=== PATIENT | male | born 1955 | race Caucasian/White ===

== ENCOUNTER 2016-12-07 02:02 | Observation (INO) | payer BC ==
[~2016-12-07] VITALS: Ht 175.3 cm; Wt 97.5 kg
[~2016-12-07 02:02] MED LIST: Aspirin E.C. PO; BP MEDICATION; CRESTOR5 MG PO; FISH OIL 1,0001 EAC7 PO; Nitrostat,NitroQuick SL; Zestril,Prinivil PO
[2016-12-07 02:29] LABS: HEMATOCRIT 43.7 % (38.0-50.0); MCHC 34.3 G/DL (30.0-36.0); MCV 87.4 FL (86-99); PLATELET COUNT 230 K/uL (156-360); RBC DIS.WIDTH-CV 12.3 % (11.8-14.6); RBC DIS.WIDTH-SD 39.6 % (39-53); WHITE BLOOD COUNT 7.2 K/uL (4.1-10.2)
[2016-12-07 02:42] LABS: CHLORIDE 105 mEq/L (99-109); POTASSIUM 3.9 mEq/L (3.7-5.4); SODIUM 140 mEq/L (136-147)
[2016-12-07 02:44] LABS: GLUCOSE 161 mg/dL (70-99)
[2016-12-07 02:45] LABS: ANION GAP 12 MEQ/L (2-14)
[2016-12-07 02:48] LABS: GFR ESTIMATE (CALCULATED) > 59 mL/min/
[2016-12-07 02:49] LABS: UREA NITROGEN (BUN) 13 mg/dL (9-23)
[2016-12-07 02:53] LABS: TROP-I INTERPRETATION NEGATIVE; TROPONIN-I < 0.01 ng/mL (0.0-0.30)
[2016-12-07 04:46] LABS: TROP-I INTERPRETATION NEGATIVE; TROPONIN-I < 0.01 ng/mL (0.0-0.30)
[2016-12-07] MEDS ORDERED: CARISOPRODOL350 MG PO (07:41)
[2016-12-07] MEDS ORDERED: ATORVASTATIN CA80 MG PO (07:42)
[2016-12-07] MEDS ORDERED: MELOXICAM15 MG PO (07:42)
[2016-12-07] MEDS ORDERED: METFORMIN HCL500 MG PO (07:42)
[2016-12-07 11:43] LABS: TROP-I INTERPRETATION NEGATIVE; TROPONIN-I < 0.01 ng/mL (0.0-0.30)
[2016-12-07 13:53] VITALS: BP 108/67
[2016-12-07 16:00] VITALS: BP 124/72
[2016-12-07 16:17] VITALS: BP 129/73
[2016-12-07 16:37] LABS: POINT-OF-CARE METER ID UU13113831
[2016-12-07 18:24] LABS: TROP-I INTERPRETATION NEGATIVE; TROPONIN-I < 0.01 ng/mL (0.0-0.30)
[2016-12-07 20:00] VITALS: BP 133/73
[2016-12-07 23:00] VITALS: BP 158/87
[2016-12-08 04:02] VITALS: BP 118/59
== END 2016-12-08 06:39 | disposition home or self-care (01) ==
LOC: EME 02:02 → EDOF 07:16 → 5WEST 13:47
PROVIDERS: Emergency Medicine; Internal Medicine; Nurse Practitioner Adult Health
DX: R07.89 Other chest pain (principal); R55 Syncope and collapse; E11.9 Type 2 diabetes mellitus without complications; E78.5 Hyperlipidemia, unspecified; M19.90 Unspecified osteoarthritis, unspecified site
CPT/HCPCS: 71020; 80048; 82948; 84484; 85027; 93005; 99281; 99285; G0378; J1885; J2270